=== PATIENT | female | born 1995 | race Caucasian/White ===

== ENCOUNTER 2019-07-23 11:55 | Day surgery (SDC) | payer OTHER ==
[~2019-07-23] VITALS: Ht 170.2 cm; Wt 82.0 kg
[~2019-07-23 11:55] MED LIST: ACET500T64 PO; ALBU8.5H5 INH; CYCL-259 PO; DIPH25CA61 PO; IBUP-1902 PO; L-NO1TBD18 PO; MELA10TA3 PO; MELA1TAB22 PO; OXYC-302 PO; [UNRECOGNIZED DRUG - REMARK]
[2019-07-23] MEDS ORDERED: LACTATED RINGERS 1,000 ML IV SCH (12:05)
[2019-07-23 12:19] VITALS: BP 117/80
[2019-07-23 12:52] LABS: HCG UR SG 1.024 (1.003-1.030)
[2019-07-23] MEDS ORDERED: BUPIVACAINE/PF 0.25% ONE (13:41)
[2019-07-23] MEDS ORDERED: INDIGO CARMINE 0.8%, 5ML ONE (13:41)
[2019-07-23] MEDS ORDERED: ACETAMINOPHEN 500 MG TABLET ONE (13:44)
[2019-07-23] MEDS ORDERED: MIDAZOLAM 1 MG/ML, 2ML ONE ×2 (13:52→16:07)
[2019-07-23] MEDS ORDERED: ROCURONIUM 10MG/ML,5ML ONE (14:08)
[2019-07-23] MEDS ORDERED: CEFAZOLIN 1,000 MG ONE (14:08)
[2019-07-23] MEDS ORDERED: DEXAMETHASONE 4 MG/ML, 1ML ONE (14:08)
[2019-07-23] MEDS ORDERED: ONDANSETRON 2MG/ML, 2ML ONE (14:08)
[2019-07-23] MEDS ORDERED: PROPOFOL 10 MG/ML, 20ML ONE (14:08)
[2019-07-23] MEDS ORDERED: FENTANYL PF 250 MCG/5ML ONE ×2 (15:15)
[2019-07-23] MEDS ORDERED: SUGAMMADEX 200 MG/2 ML IVPush ONE (15:43)
[2019-07-23] MEDS ORDERED: LABETALOL 5MG/ML, 20ML IV PRN (16:00)
[2019-07-23] MEDS ORDERED: OXYcodone 5 MG/5 ML ORAL.SOL UDC PO PRN (16:00)
[2019-07-23] MEDS ORDERED: PROMETHAZINE 25 MG/ML, 1ML IV PRN (16:00)
[2019-07-23] MEDS ORDERED: MEPERIDINE/PF 25MG/0.5ML IVPush PRN (16:00)
[2019-07-23] MEDS ORDERED: ALBUTEROL SULFATE 2.5 MG/3 ML NPPB PRN (16:00)
[2019-07-23] MEDS ORDERED: hydrALAzine 20 MG/ML, 1ML IV PRN (16:00)
[2019-07-23] MEDS ORDERED: ACETAMINOPHEN 325 MG TABLET PO PRN (16:00)
[2019-07-23] MEDS ORDERED: KETOROLAC 30 MG/1 ML IV PRN ×2 (16:00→18:30)
[2019-07-23] MEDS ORDERED: FENTANYL PF 100 MCG/2ML ONE (16:05)
[2019-07-23] MEDS ORDERED: OXYcodone 5 MG/5 ML ORAL.SOL UDC ONE (16:07)
[2019-07-23] MEDS ORDERED: HYDROmorphone 1 MG/ML, 1ML INJ ONE ×2 (16:08→17:03)
[2019-07-23] MEDS ORDERED: DIAZEPAM 5 MG/ML, 2ML ONE (16:09)
[2019-07-23] MEDS: DIAZEPAM 5 MG/ML, 2ML IVPush PRN ×2 (16:10→16:42)
[2019-07-23] MEDS ORDERED: MEPERIDINE/PF 25MG/ML,1ML ONE (16:14)
[2019-07-23] MEDS: FENTANYL PF 100 MCG/2ML IV PRN ×2 (16:38→16:44)
[2019-07-23] MEDS: HYDROmorphone 2 MG/ML, 1ML IVPush PRN ×4 (16:42→17:15)
[2019-07-23] MEDS ORDERED: KETOROLAC 30 MG/1 ML ONE (17:02)
[2019-07-23] MEDS ORDERED: ONDANSETRON 2MG/ML, 2ML IV PRN (18:30)
[2019-07-23] MEDS ORDERED: OXYcodone/APAP 5/325MG TABLET PO PRN (18:30)
[2019-07-23] MEDS ORDERED: SODIUM CHLORIDE FLUSH 10ML SYR IVF SCH (21:00)
[2019-07-23] MEDS ORDERED: ATORVASTATIN 40 MG TABLET PO SCH (21:00)
[2019-07-24] MEDS ORDERED: HYDROCHLOROTHIAZIDE 25 MG TABLET PO SCH (09:00)
[2019-07-24] MEDS ORDERED: CALCIUM POLYCARBOPHIL 625 MG TABLET PO SCH (09:00)
[2019-07-24] MEDS ORDERED: CHOLECALCIFEROL 1,000 UNIT TABLET PO SCH (09:00)
[2019-07-24] MEDS ORDERED: BENAZEPRIL 20 MG TABLET PO SCH (09:00)
[2019-07-24] MEDS ORDERED: OMEGA-3/FISH OIL CAPSULE PO SCH (09:00)
[2019-07-24] MEDS ORDERED: MAGNESIUM OXIDE 400 MG TABLET PO SCH (09:00)
[2019-07-24] MEDS ORDERED: CALCIUM/VITAMIN D3 250-125 TABLET PO SCH (09:00)
[2019-07-24] MEDS ORDERED: MULTIVITAMIN 1 TABLET PO SCH (09:00)
== END 2019-07-23 18:37 | disposition home or self-care (01) ==
LOC: OUT 11:55 → 4NE 17:52 → OUT 18:37
PROVIDERS: ATTEND Specialist
DX: N92.0 Excessive and frequent menstruation with regular cycle (principal); N80.0 Endometriosis of uterus; N94.6 Dysmenorrhea, unspecified; N94.10 Unspecified dyspareunia; N88.8 Other specified noninflammatory disorders of cervix uteri; Z88.6 Allergy status to analgesic agent; Z88.8 Allergy status to other drugs, medicaments and biological substances
CPT/HCPCS: 57265; 58571; 81025; 88307; J0690; J1100; J1170; J1885; J2175; J2405; J2704; J3010; J3360; J3490; J7120; S2900; G0378; J2250